=== PATIENT | male | born 1995 | race African-American/Black ===

== ENCOUNTER 2019-07-30 18:22 | Emergency (ER) | payer BC ==
--- NOTE | 2019-07-30 18:48 | EDM.PDOC ---
ED HPI GENERAL MEDICAL PROBLEM - General Chief Complaint: Respiratory Problem Stated Complaint: CHEST CONGESTION/ Time Seen by Provider: 07/30/19 18:31 Source of Information: Reports: Patient History Limitations: Reports: No Limitations - History of Present Illness INITIAL COMMENTS - FREE TEXT/NARRATIVE: Patient is a 23-year-old gentleman who presents to the emergency department via private vehicle this evening and has a complaint of intermittent shortness of breath. Patient states that he is employed at [employer] and works around chemicals and dust and this causes some issues. Patient states he did not go to work last night and is concerned about going to work tonight. Patient states he's been working at [employer] for short period of time, wears eye protection and hearing protection, however, does not wear a respirator. He states that the area he works has dust. Patient denies chest pain, fever, history of own or family cardiac issues, nausea, vomiting, diarrhea, difficulty swallowing, swelling of tongue, or skin rash. Onset: Gradual Duration: Chronic Location: Reports: Chest Severity: Mild Improves with: Reports: None Worsens with: Reports: Other (Working at [employer]) Associated Symptoms: Reports: Shortness of Breath. Denies: Cough, Diaphoresis, Fever/Chills, Nausea/Vomiting - Related Data Allergies Allergy/AdvReac Type Severity Reaction Status Date / Time No Known Allergies Allergy Verified 07/30/19 18:53 Home Meds: Home Meds Loratadine/Pseudoephedrine [Claritin-D 12 Hour] 1 tab PO Q12HR #30 tab.er [Rx] ED ROS GENERAL - Review of Systems Review Of Systems: Comprehensive ROS is negative, except as noted in HPI. Constitutional: Reports: No Symptoms HEENT: Reports: No Symptoms Respiratory: Reports: Shortness of Breath, Pleuritic Chest Pain Cardiovascular: Reports: No Symptoms Endocrine: Reports: No Symptoms GI/Abdominal: Reports: No Symptoms : Reports: No Symptoms Musculoskeletal: Reports: No Symptoms Skin: Reports: No Symptoms Neurological: Reports: No Symptoms Psychiatric: Reports: No Symptoms Hematologic/Lymphatic: Reports: No Symptoms Immunologic: Reports: No Symptoms ED EXAM, GENERAL - Physical Exam Exam: See Below Exam Limited By: No Limitations General Appearance: Alert, WD/WN, No Apparent Distress Nose: Normal Inspection, Normal Mucosa, No Blood Throat/Mouth: Normal Inspection, Normal Oropharynx, No Airway Compromise Head: Atraumatic, Normocephalic Neck: Normal Inspection, Supple, Non-Tender, Full Range of Motion Respiratory/Chest: No Respiratory Distress, Lungs Clear, Normal Breath Sounds, No Accessory Muscle Use, Chest Non-Tender Cardiovascular: Normal Peripheral Pulses, Regular Rate, Rhythm, No Murmur, No Rub GI/Abdominal: Normal Bowel Sounds, Soft, Non-Tender, No Organomegaly, No Distention, No Abnormal Bruit, No Mass Back Exam: Normal Inspection. No: CVA Tenderness (L), CVA Tenderness (R) Extremities: Normal Inspection, Normal Range of Motion, Non-Tender, No Pedal Edema Neurological: Alert, Oriented, Normal Cognition Psychiatric: Normal Affect, Normal Mood Skin Exam: Warm, Dry, Intact, Normal Color, No Rash Lymphatic: No Adenopathy Course - Orders/Labs/Meds Orders: Active Orders 24 hr Category Date Time Status Chest 2V [CR] Stat Exams 07/30/19 18:39 Ordered - Radiology Interpretation Free Text/Narrative:: Chest x-ray shows no acute cardiopulmonary process - Re-Assessments/Exams Free Text/Narrative Re-Assessment/Exam: 07/30/19 18:53 Patient afebrile, vital signs stable, patient's complaints are nonspecific. Patient inquiring about excuse notes for work. Patient will follow-up with PCP. Departure - Departure Time of Disposition: 18:58 Disposition: Home, Self-Care 01 Condition: Good Clinical Impression: Dust allergy - Discharge Information Instructions: Allergies, Adult, [id number] Referrals: PCP,None [Primary Care Provider] - Forms: ED Department Discharge Additional Instructions: Follow-up with PCP in next 2-3 days. Return to emergency department sooner if symptoms continue or worsen - My Orders Last 24 Hours: My Active Orders 07/30/19 18:39 Chest 2V [CR] Stat - Assessment/Plan Last 24 Hours: My Active Orders 07/30/19 18:39 Chest 2V [CR] Stat Assessment:: Allergies Plan: Follow-up with PCP
--- NOTE | 2019-07-30 18:57 | CR ---
[id number] RAD/RAD Chest PA And Lateral EXAM: FRONTAL AND LATERAL CHEST INDICATION: SHORT OF BREATH. COMPARISON: None. DISCUSSION: The heart and lungs are normal in appearance. IMPRESSION: 1. Negative exam. Krzysztof Cochran MD 07/30/19 1710 Thank you for allowing us to participate in the care of your patient.
== END 2019-07-30 19:15 | disposition home or self-care (01) ==
LOC: KA.ED 18:22
DX: J30.89 Other allergic rhinitis (principal)
CPT/HCPCS: 71046; 99284-25

== ENCOUNTER 2020-11-07 18:34 | Emergency (ER) | payer BC ==
--- NOTE | 2020-11-07 19:03 | EDM.PDOC ---
ED HPI GENERAL MEDICAL PROBLEM - General Stated Complaint: COUGH, SORE THROAT Time Seen by Provider: 11/07/20 18:38 Source of Information: Reports: Patient History Limitations: Reports: No Limitations - History of Present Illness INITIAL COMMENTS - FREE TEXT/NARRATIVE: Patient presents with cough and sore throat for 3 days. No fever or aches. No asthma. He has some chest pain with the cough. No history of covid or known exposure. He just recently returned from a trip to [place] but wore a mask all the time. - Related Data Allergies Allergy/AdvReac Type Severity Reaction Status Date / Time No Known Allergies Allergy Verified 11/07/20 19:11 Home Meds: Home Meds . [No Known Home Meds] 11/07/20 [History] Past Medical History - Past Health History Medical/Surgical History: Denies Medical/Surgical History Social & Family History - Caffeine Use Caffeine Use: Reports: None ED ROS GENERAL - Review of Systems Review Of Systems: See Below Constitutional: Denies: Fever, Chills, Malaise HEENT: Reports: Throat Pain. Denies: Ear Pain, Vision Change Respiratory: Reports: Shortness of Breath, Cough. Denies: Sputum Cardiovascular: Denies: Chest Pain, Lightheadedness, Syncope GI/Abdominal: Denies: Abdominal Pain, Vomiting : Reports: No Symptoms Musculoskeletal: Reports: No Symptoms Skin: Reports: No Symptoms Neurological: Reports: No Symptoms Psychiatric: Reports: No Symptoms ED EXAM, GENERAL - Physical Exam Exam: See Below Exam Limited By: No Limitations General Appearance: Alert, WD/WN, No Apparent Distress Eye Exam: Bilateral Eye: EOMI, Normal Inspection, PERRL Ears: Normal External Exam, Hearing Grossly Normal Nose: Normal Inspection, No Blood Throat/Mouth: Normal Inspection, Normal Lips, Normal Oropharynx, Normal Voice, No Airway Compromise Head: Atraumatic, Normocephalic Neck: Normal Inspection, Full Range of Motion Respiratory/Chest: Decreased Breath Sounds (sounded distant and mildly restricted). No: Crackles, Rales, Rhonchi, Wheezing, Stridor Cardiovascular: Regular Rate, Rhythm, No Murmur Back Exam: Normal Inspection, Full Range of Motion Extremities: Normal Inspection, Normal Range of Motion Neurological: Alert, Oriented, Normal Cognition, No Motor/Sensory Deficits Psychiatric: Normal Affect, Normal Mood Skin Exam: Warm, Dry, Intact, Normal Color, No Rash Course - Vital Signs Last Recorded V/S: Last Vital Signs Temp 97.2 F 11/07/20 18:45 Pulse 76 11/07/20 18:45 Resp 18 11/07/20 18:45 BP 120/56 L 11/07/20 18:45 Pulse Ox 96 11/07/20 18:45 - Orders/Labs/Meds Labs: Laboratory Tests 11/07/20 Range/Units 18:50 Influenza Type A RNA Negative (NEGATIVE) Influenza Type B RNA Negative (NEGATIVE) SARS-CoV-2 RNA (RICCARDO) Negative (NEGATIVE) - Re-Assessments/Exams Free Text/Narrative Re-Assessment/Exam: 11/07/20 19:53 CXR clear. Covid-19 and influenza A and B are negative. Departure - Departure Time of Disposition: 19:50 Disposition: Home, Self-Care 01 Condition: Good Clinical Impression: URI, acute - Discharge Information Instructions: Viral Respiratory Infection, [id number] Referrals: Meli Samano MD [Primary Care Provider] - Additional Instructions: Drink 8 cups of water daily. Try to get extra rest and keep warm while your body fights off the cold virus. Follow up with a clinic provider if not resolving in about a week or if worsening. Return to ER as needed. Sepsis Event Note (ED) - Focused Exam Vital Signs: Vital Signs Temp Pulse Resp BP Pulse Ox 11/07/20 18:45 97.2 F 76 18 120/56 L 96
[2020-11-07 19:42] LABS: CORONAVIRUS COVID-19 NAA NEGATIVE (NEGATIVE)
--- NOTE | 2020-11-07 19:49 | CR ---
[id number] RAD/RAD Chest PA And Lateral EXAM: FRONTAL AND LATERAL CHEST INDICATION: COUGH DYSPNEA. COMPARISON: July 30, 2019. DISCUSSION: The heart and lungs are normal in appearance. IMPRESSION: 1. Negative exam. Krzysztof Cochran MD 11/07/20 1948 Thank you for allowing us to participate in the care of your patient.
== END 2020-11-07 20:12 | disposition home or self-care (01) ==
LOC: KA.ED 18:34
DX: J06.9 Acute upper respiratory infection, unspecified (principal); Z20.822 Contact with and (suspected) exposure to COVID-19
CPT/HCPCS: 0240U; 71046; 99283; 99283-25

== ENCOUNTER 2021-02-17 08:37 | Emergency (ER) | payer BC ==
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
== END 2021-02-17 09:20 | disposition home or self-care (01) ==
LOC: KA.ED 08:37
DX: J01.00 Acute maxillary sinusitis, unspecified (principal); J30.89 Other allergic rhinitis
CPT/HCPCS: 99283

== ENCOUNTER 2022-05-12 10:52 | Emergency (ER) | payer BC ==
[2022-05-12] MEDS: Sodium Chloride 0.9% 1,000 ML IV ONE (11:22)
[2022-05-12] MEDS: Sodium Chloride 0.9% 1,000 ML ONE (11:35)
[2022-05-12 11:39] LABS: BARBITURATE SCREEN,URINE NEGATIVE (NEGATIVE); BENZODIAZEPINES SCREEN,URINE NEGATIVE (NEGATIVE); TCA SCREEN,URINE NEGATIVE (NEGATIVE); THC SCREEN,URINE 50 NG/ML NEGATIVE (NEGATIVE)
[2022-05-12 11:40] LABS: ANION GAP 10.6 mmol/L (5-15)
[2022-05-12 12:23] VITALS: BP 104/66; PULSE 64
== END 2022-05-12 13:05 | disposition home or self-care (01) ==
LOC: KA.ED 10:52
DX: R19.7 Diarrhea, unspecified (principal); K59.09 Other constipation
CPT/HCPCS: 36415; 80053; 80305-QW; 81001; 85025; 96360; 99284; 99284-25; J7030